=== PATIENT | female | born 1970 | race Caucasian/White ===

== ENCOUNTER 2016-08-04 09:39 | Day surgery (SDC) | payer OTHER ==
[2016-07-28 10:12] VITALS: Ht 152.4 cm; Wt 73.3 kg
[2016-08-04] VITALS (8 sets, daily range): BP systolic 91–134; BP diastolic 58–84; PULSE 58–71; RESP 12–21
[~2016-08-04] VITALS: Ht 152.4 cm; Wt 73.3 kg
[~2016-08-04 09:39] MED LIST: ATEN-51 PO
[2016-08-04] MEDS ORDERED: CEFAZOLIN 2 GM/50 ML (PMX) 50 ML IVPB ONE (11:30)
[2016-08-04] MEDS ORDERED: SOD CHLORIDE 0.9% 1,000 ML IV SCH (11:30)
[2016-08-04] MEDS ORDERED: FENTAnyl 50 MCG/ML VIAL ONE (12:46)
[2016-08-04] MEDS ORDERED: PROPOFOL 20 ML ONE (12:46)
[2016-08-04] MEDS ORDERED: MIDAZOLAM 1 MG/ML 2 ML INJ ONE (12:46)
[2016-08-04] MEDS ORDERED: LIDOCAINE 2% (SDV) 5 ML INJ ONE ×2 (12:46→13:41)
[2016-08-04] MEDS ORDERED: BUPIVACAINE 0.25% (MPF) 30 ML INJ ONE ×2 (13:15→13:41)
[2016-08-04] MEDS ORDERED: CEFAZOLIN 1 GM INJ ONE (13:29)
[2016-08-04] MEDS ORDERED: PROCHLORPERAZINE 10 MG INJ IV PRN (13:30)
[2016-08-04] MEDS ORDERED: ONDANSETRON 4 MG INJ IV PRN (13:30)
[2016-08-04] MEDS ORDERED: METOCLOPRAMIDE 10 MG INJ IV PRN (13:30)
[2016-08-04] MEDS ORDERED: MEPERIDINE 25 MG INJ IV PRN (13:30)
[2016-08-04] MEDS ORDERED: OXYCODONE/ACETAMINOPHEN (5/325) TAB PO PRN ×2 (13:30)
[2016-08-04] MEDS ORDERED: DIPHENHYDRAMINE 50 MG INJ IV PRN (13:30)
[2016-08-04] MEDS ORDERED: FENTAnyl 50 MCG/ML VIAL IV PRN (13:30)
[2016-08-04] MEDS ORDERED: METOCLOPRAMIDE 10 MG INJ ONE (13:32)
[2016-08-04] MEDS ORDERED: ONDANSETRON 4 MG INJ ONE (13:32)
[2016-08-04] MEDS ORDERED: ACETAMINOPHEN/CODEINE #3 TAB PO ONE (14:00)
--- NOTE | 2016-08-04 14:01 | OPR ---
DATE OF OPERATION: 08/04/2016 INDICATION: This is a 46-year-old female with a back mass. She requests surgical excision. Risks, alternatives, benefits, and personnel were discussed with the patient. The patient expressed under standing and consents to the operation. PREOPERATIVE DIAGNOSIS: Back mass. POSTOPERATIVE DIAGNOSIS: Back mass. OPERATION: 1. Excision of back mass with 3 cm incision and 3 x 2 cm size mass. 2. Localized adjacent tissue transfer with the use of skin flaps. SURGEON: Samuel Gaytan MD SPECIMEN: Back mass. COMPLICATIONS: None. ANESTHESIA: MAC. PROCEDURE: The patient was taken to the OR and prepped and draped in usual sterile fashion. Surgic al timeout was performed. IV antibiotics were given. Transverse incision is made over the back mas s after local anesthesia was infiltrated. Dissection cautery was carried to the mass and circumfere ntially excised along with some skin tissue. There was good hemostasis. Due to the tissue defect l ocalized adjacent tissue transfer with the use of skin flaps was performed. Multilayer closure with interrupted 3-0 Vicryl and skin machelle. Local anesthesia was injected. Dry dressings were applie d. Dictated By: SAMUEL OCAMPO/RIGOBERTO Conf#: [id number] DID#: [id number]
== END 2016-08-04 15:15 | disposition home or self-care (01) ==
LOC: SDS 09:39
PROVIDERS: ATTEND Surgery
DX: L72.0 Epidermal cyst (principal); I10 Essential (primary) hypertension
CPT/HCPCS: 14000; 88307; J0690; J2250; J2405; J2765; J3010